=== PATIENT | male | born 1950 | race Caucasian/White ===

== ENCOUNTER 2016-09-07 07:45 | Observation (INO) | payer OTHER ==
[2016-09-07] MEDS ORDERED: diphenhydrAMINE 25 MG CAP PO ONE (07:52)
[2016-09-07] MEDS ORDERED: BACITRACIN IRRIGATION/NS 50,000 UNITS/1,000 ML BTL IRR ONE (07:52)
[2016-09-07] MEDS ORDERED: ceFAZolin 2 GM/DEXTROSE 100 ML IV ONE (07:52)
[2016-09-07] MEDS ORDERED: DIAZEPAM 5 MG TAB PO ONE (07:52)
[2016-09-07] MEDS ORDERED: NS 1,000 ML IV ONE (07:52)
--- NOTE | 2016-09-07 08:08 | CPEKG ---
Heart Rate: 65 RR Interval: 923 P-R Interval: 196 QRSD Interval: 110 QT Interval: 460 QTC Interval: 479 QRS [place]: -1 T Wave [place]: 175 EKG Severity - ABNORMAL ECG - EKG Impression: ATRIAL-PACED RHYTHM EKG Impression: LVH WITH IVCD AND SECONDARY REPOL ABNRM EKG Impression: PROBABLE INFERIOR INFARCT, AGE INDETERMINATE EKG Impression: PACING IS NEW IN COMPARISON TO PRIOR Electronically Signed By: Louis Gonzalez 07-Sep-2016 12:51:20
[2016-09-07 08:18] LABS: % IMMATURE GRANULYOCYTES 0.2 % (0.0-1.1); ABSOLUTE IMMATURE GRANULOCYTES 0.01 10^3/uL (0.00-0.10); ADD DIFF? NO; ADD MORPH? NO; ADD SCAN? NO; ATYPICAL LYMPHOCYTE FLAG 10 (0-99); FRAGMENT RBC FLAG 0 (0-99); HEMOGLOBIN 15.6 g/dL (13.7-17.5); LEFT SHIFT FLG 0 (0-99); LIPEMIA HEMOLYSIS FLAG 90 (0-99); MEAN CELL HEMOGLOBIN CONCENTR. 33.9 g/dL (32.4-36.7); MEAN CELL VOLUME 91.3 fL (81.5-99.8); MEAN PLATELET VOLUME 10.4 fL (8.7-11.7); PLATELET CLUMPS FLAG 0 (0-99); PLATELET COUNT 180 10^3/uL (150-400); RED BLOOD CELL COUNT 5.04 10^6/uL (4.40-6.38); RED CELL DISTRIBUTION WIDTH 13.2 % (11.5-15.2)
[2016-09-07] MEDS ORDERED: fentaNYL 100 MCG/2 ML INJ ONE ×2 (08:24→09:56)
[2016-09-07] MEDS ORDERED: LIDOCAINE 1% 300 MG/30 ML SDV ONE (08:24)
[2016-09-07] MEDS ORDERED: MIDAZOLAM 2 MG/2 ML VIAL ONE ×3 (08:24→11:18)
[2016-09-07] MEDS ORDERED: LIDO/EPI 1% **for epidural** 30 ML SDV ONE (08:25)
[2016-09-07] MEDS ORDERED: BUPIVACAINE 0.5% 30 ML SDV ONE (08:25)
[2016-09-07 08:32] LABS: INR 1.01 (0.83-1.16); PROTIME(PATIENT) 13.2 SEC (12.0-15.0)
[2016-09-07 08:33] LABS: ANION GAP 12 mEq/L (8-16); CALCIUM 9.3 mg/dL (8.5-10.4); CARBON DIOXIDE 25 mEq/l (22-31); CHLORIDE 108 mEq/L (97-110); CREATININE 1.3 mg/dL (0.7-1.3); GLOMERULAR FILTRATION RATE 55; GLUCOSE 81 mg/dL (70-100); POTASSIUM 4.2 mEq/L (3.5-5.2); SODIUM 145 mEq/L (134-144)
[2016-09-07] MEDS ORDERED: ASCORBIC ACID 500 MG TAB PO ONE (09:45)
[2016-09-07] MEDS ORDERED: ETOMIDATE 40 MG/20 ML INJ ONE (10:04)
[2016-09-07] MEDS ORDERED: IOPAMIDOL (ISOVUE-370) 150 ML BTL IV ONE (10:31)
[2016-09-07] MEDS ORDERED: ONDANSETRON 4 MG/2 ML VIAL IVP PRN (12:12)
[2016-09-07] MEDS ORDERED: ONDANSETRON DISINTEGRATING 4 MG TAB PO PRN (12:12)
--- NOTE | 2016-09-07 12:12 | EPPROC ---
Electrophysiology Procedure Note: PROCEDURE: 1. Dual-chamber AICD Generator pacemaker replacement for indication of MADIT II criteria, ischemic cardiomyopathy and non-sustained ventricular tachycardia 2. Chronic right atrial lead abandoned and capped. 3. Implantation of new right atrial lead for indication of high atrial lead threshold and visible insulation fracture DATE OF PROCEDURE: 09/07/2016 EXPLANTED DEVICE: Biotronik [id number] Lumax 540 DR-T Serial #[id number]. IMPLANTED DEVICE: Itrevia 7 DR-T DF-1 [id number] Serial #[id number] LEADS: The chronic right atrial lead is a [employer] 1882TC-46, Serial # [id number] and was capped. The chronic right ventricular lead is a Biotronik Linox S 65 Serial #[id number]. The newly implanted right atrial lead is a Biotronik Solia S 45 Serial #[id number] COMPLICATIONS: None CHIEF ENGINEER DRILLING AND RECOVERY: Remigio Geiger MD INDICATION AND APPROPRIATE USE CRITERIA: The device is being replaced for ELIZ alerts. PROCEDURE IN DETAIL: After informed consent was obtained and n.p.o. status was confirmed, the region of the left subclavicular fossa was cleaned, prepped and draped in a sterile fashion. Approximately 20 mL of 1% lidocaine was utilized for local anesthesia. The skin was sharply incised with a #10 blade. Electrocautery and local pressure were used for hemostasis. Sharp and blunt dissection was used to access the pacemaker pocket overlying the pectoralis major fascia. The pocket was thoroughly flushed and checked for bleeding. Hemostasis was established and the old device was removed from the pocket. The atrial and ventricular lead set screws were loosened. The chronic atrial lead was known to have an insulation fracture in the wall of the lead with dried blood in the fracture line. The atrial lead threshold was also high and would probably have decreased the battery life of the new device by at least 2 years by our calculations. The patient was then placed in Trendelenburg position and 18 gauge cook needle was used to gain access to the left subclavian vein. A peal away sheath was placed in the vein and used to place a new atrial lead. The atrial lead was carefully placed with the tip in the right atrial appendage and the set screw was deployed. The atrial lead threshold was 0.8 V at 0.4 milliseconds. P wave amplitude was measured at 3.1. The lead impedance was 507 Ohms. The lead was sutured into place with Ethibond. The atrial lead serial number was checked and placed in the upper pole lead housing of the new pulse generator and set screw firmly applied. The procedure was repeated for the RV lead. Ventricular lead threshold was tested and found to be 0.7 V at 0.4 ms width. R-wave amplitude was measured at 27.8 mV. Lead impedance was 507 Ohms. The device was placed in the pocket and sutured into place with Ethibond. The skin was closed with a 3-layered 3-0 Vicryl, 2-0 Vicryl and 4-0 Monocryl repair with excellent wound edge opposition and hemostasis documented. The patient returned to the post cath recovery unit in good and stable condition where a stat postoperative EKG and chest X-Ray will be obtained. FINAL IMPRESSION: Successful elective pulse generator/AICD generator replacement and atrial lead implantation without immediate complication.
[2016-09-07] MEDS ORDERED: NS 1,000 ML IV SCH (12:15)
--- NOTE | 2016-09-07 12:32 | CPEKG ---
Heart Rate: 63 RR Interval: 952 P-R Interval: 172 QRSD Interval: 110 QT Interval: 472 QTC Interval: 484 P [place]: 36 QRS [place]: -9 T Wave [place]: 186 EKG Severity - ABNORMAL ECG - EKG Impression: ATRIAL-PACED COMPLEXES EKG Impression: LEFT ATRIAL ABNORMALITY EKG Impression: NONSPECIFIC INTRAVENTRICULAR CONDUCTION DELAY EKG Impression: LVH WITH SECONDARY REPOLARIZATION ABNORMALITY EKG Impression: INFERIOR INFARCT, AGE INDETERMINATE Electronically Signed By: Louis Gonzalez 07-Sep-2016 12:51:34
[2016-09-07] MEDS: ACETAMINOPHEN 325 MG TAB PO PRN (18:08)
[2016-09-07] MEDS: CARVEDILOL CR 40 MG CAP PO SCH ×2 (20:48→20:51)
[2016-09-07] MEDS ORDERED: ROSUVASTATIN CALCIUM 20 MG TAB PO SCH (21:00)
[2016-09-08] MEDS: ACETAMINOPHEN 325 MG TAB PO PRN (04:11)
[2016-09-08 04:20] VITALS: RESP 17; O2SAT 97
[2016-09-08 05:04] LABS: % IMMATURE GRANULYOCYTES 0.2 % (0.0-1.1); ABSOLUTE IMMATURE GRANULOCYTES 0.01 10^3/uL (0.00-0.10); ADD DIFF? NO; ADD MORPH? NO; ADD SCAN? NO; ATYPICAL LYMPHOCYTE FLAG 0 (0-99); FRAGMENT RBC FLAG 0 (0-99); HEMATOCRIT 44.1 % (40.0-51.0); HEMOGLOBIN 14.7 g/dL (13.7-17.5); LEFT SHIFT FLG 0 (0-99); LIPEMIA HEMOLYSIS FLAG 80 (0-99); MEAN CELL HEMOGLOBIN 30.9 pg (27.9-34.1); MEAN CELL HEMOGLOBIN CONCENTR. 33.3 g/dL (32.4-36.7); MEAN CELL VOLUME 92.6 fL (81.5-99.8); MEAN PLATELET VOLUME 11.3 fL (8.7-11.7); PLATELET CLUMPS FLAG 0 (0-99); PLATELET COUNT 167 10^3/uL (150-400); RED BLOOD CELL COUNT 4.76 10^6/uL (4.40-6.38); RED CELL DISTRIBUTION WIDTH 13.4 % (11.5-15.2)
[2016-09-08 05:22] LABS: ANION GAP 10 mEq/L (8-16); CALCIUM 8.8 mg/dL (8.5-10.4); CARBON DIOXIDE 24 mEq/l (22-31); CHLORIDE 107 mEq/L (97-110); CREATININE 1.4 mg/dL (0.7-1.3); GLOMERULAR FILTRATION RATE 51; GLUCOSE 74 mg/dL (70-100); POTASSIUM 4.7 mEq/L (3.5-5.2); SODIUM 141 mEq/L (134-144)
[2016-09-08 08:17] VITALS: PULSE 68; TEMP 98
[2016-09-08] MEDS ORDERED: FLUoxetine 20 MG CAP PO SCH (09:00)
[2016-09-08] MEDS ORDERED: Herbals/Supplements -Info Only PO SCH (09:00)
[2016-09-08] MEDS ORDERED: ASPIRIN 81 MG CHEWABLE TAB PO SCH (09:00)
[2016-09-08] MEDS ORDERED: RAMIPRIL 5 MG CAP PO SCH (09:00)
[2016-09-08] MEDS ORDERED: OMEGA-3 FATTY ACIDS 1,000 MG CAP PO SCH (09:00)
--- NOTE | 2016-09-08 09:19 | CPEKG ---
Heart Rate: 70 RR Interval: 857 P-R Interval: 203 QRSD Interval: 110 QT Interval: 448 QTC Interval: 484 QRS [place]: 4 T Wave [place]: 197 EKG Severity - ABNORMAL ECG - EKG Impression: ATRIAL-PACED RHYTHM EKG Impression: NONSPECIFIC INTRAVENTRICULAR CONDUCTION DELAY EKG Impression: INFERIOR INFARCT, AGE INDETERMINATE Electronically Signed By: Louis Gonzalez 08-Sep-2016 14:19:08
[2016-09-08] MEDS ORDERED: CARVEDILOL CR 40 MG CAP PO SCH (10:45)
[2016-09-08 11:05] VITALS: BP 145/98
--- NOTE | 2016-09-08 22:58 | GDS ---
[f rep st] DISCHARGE SUMMARY DISCHARGE DIAGNOSES: 1. Ischemic cardiomyopathy with an EF of 20% with recent EILZ on ICD status post generator change. 2. Item implantation of new right atrial lead for high atrial lead threshold and visible insulation fracture on previous lead. 3. History of coronary artery disease. 4. History of dyslipidemia. 5. Hypertension. 6. Paroxysmal atrial fibrillation. PROCEDURES: 1. ICD generator pacemaker replacement based on made to criteria for ischemic cardiopathy. 2. Chronic right atrial lead abandonment and capping. 3. Implantation of a new right atrial lead for high atrial threshold as well as well as visible ins ulation fracture. 4. Serial chest x-rays. BRIEF HISTORY: Please see dictated H and P by Dr. Geiger for complete details. In brief, Mr. Cj Fuller is a 66-year-old male with known coronary artery disease, ischemic cardiomyopathy, EF of 20% with NYHA functional class 2 symptoms, hypertension, dyslipidemia, PAF, who was found to be at ELIZ o n pacer interrogation. He proceeded to generator change yesterday. At the time of his generator ch sarah, he was found to have increased impedances on his atrial lead as well as visible lead fractures , so he therefore required a lead revision of his atrial lead. RESULTS PENDING: None. DIET: Per previous. ACTIVITY: Arm precautions were reviewed. DISCHARGE MEDICATIONS: Please see med reconciliation. He is being discharged on his carvedilol, __ , ramipril, omega-3 fatty acids, fluoxetine. He is advised to take Tylenol p.r.n. pacer sit e pain. His aspirin is being restarted tomorrow as he has had issues with hematoma with his ICD in the past. /[id number]/MODL
== END 2016-09-08 11:09 | disposition home or self-care (01) ==
LOC: FCATH 07:45 → F2W 12:12
PROVIDERS: ADMIT Internal Medicine Cardiovascular Disease; ATTEND Internal Medicine Cardiovascular Disease
PROC: 02PA0MZ Removal of Cardiac Lead from Heart, Open Approach (ICD-10-PCS; principal; 2016-09-07)
PROC: 02HL3KZ Insertion of Defibrillator Lead into Left Ventricle, Percutaneous Approach (ICD-10-PCS; principal; 2016-09-07)
DX: Z45.018 Encounter for adjustment and management of other part of cardiac pacemaker (principal); I25.5 Ischemic cardiomyopathy; I25.10 Atherosclerotic heart disease of native coronary artery without angina pectoris; T82.198A Other mechanical complication of other cardiac electronic device, initial encounter; I47.2 Ventricular tachycardia; E78.5 Hyperlipidemia, unspecified; I10 Essential (primary) hypertension; I48.0 Paroxysmal atrial fibrillation; Z79.01 Long term (current) use of anticoagulants
CPT/HCPCS: 33216; 33235; 71010; 71020; 93005; A4649; C1769; G0378; C1721; C1898; J0690; J2250; J3010; Q9967

== ENCOUNTER 2016-11-16 22:56 | Emergency (ER) | payer OTHER ==
[2016-11-16 23:07] VITALS: RESP 18; TEMP 98.1
[2016-11-16] MEDS ORDERED: diphenhydrAMINE 25 MG CAP PO ONE (23:40)
[2016-11-16] MEDS ORDERED: predniSONE 20 MG TAB PO ONE (23:56)
[2016-11-16] MEDS ORDERED: FAMOTIDINE 20 MG TAB PO ONE (23:56)
--- NOTE | 2016-11-17 00:51 | EDPHY ---
H & P Stated Complaint: UPPER LIP SWELLING AFTER HOT SOUP WITH PEPPERS IN IT Time Seen by Provider: 11/16/16 23:29 HPI/ROS: HPI The patient presents with upper lip swelling for the last 3 hours. He earlier this afternoon was cutting a jalapeno and then brushed his upper lip. He had a burning sensation in his upper lip that lasted for about 45 minutes, then resolved on its own. After this he had the gradual onset of swelling of his upper lip which was progressive, severe and constant, not associated with any pain. He denies any difficulty swallowing, drooling, enlargement of his tongue , rash, vomiting, dizziness. He is on ramipril for several years. Yesterday he took a dose of Aleve for back pain he was having. Three days ago, he saw his end matcher and had new medications added to his usual medications- allopurinol on a diuretic of some sort. REVIEW OF SYSTEMS Constitutional: No fever, no chills. Eyes: No discharge. ENT: No sore throat. Cardiovascular: No chest pain, no palpitations. Respiratory: No cough, no shortness of breath. Gastrointestinal: No abdominal pain, no vomiting. Genitourinary: No hematuria. Musculoskeletal: No back pain. Skin: No rashes. Neurological: No headache. PMHx: Hypertension, CAD Soc Hx: Housed PHYSICAL General Appearance: Alert, no distress Eyes: Pupils equal and round no pallor or injection ENT, Mouth: Entirety of upper lip is markedly edematous, posterior pharynx and tongue are unremarkable, there is no stridor, Mucous membranes moist Respiratory: There are no retractions, lungs are clear to auscultation Cardiovascular: Regular rate and rhythm Neurological: A&O, moves all extremities Skin: Warm and dry, no rashes Musculoskeletal: Neck is supple non tender Extremities: symmetrical, full range of motion Psychiatric: Patient is oriented X 3, there is no agitation Source: Patient Exam Limitations: No limitations - Personal History Current Tetanus/Diphtheria Vaccine: Yes Current Tetanus Diphtheria and Acellular Pertussis (TDAP): Yes - Medical/Surgical History Hx Asthma: No Hx Chronic Respiratory Disease: No Hx Diabetes: No Hx Cardiac Disease: Yes Hx Renal Disease: No Hx Cirrhosis: No Hx Alcoholism: No Hx HIV/AIDS: No Hx Splenectomy or Spleen Trauma: No Other PMH: [place], cabg '05, ICM, [place], afib, HTN, CAD, "easy bleed', gen change with lead revision 2017, aicd - Social History Smoking Status: Never smoked Constitutional: Initial Vital Signs Temperature (C) 36.7 C 11/16/16 22:59 Heart Rate 80 11/16/16 22:59 Respiratory Rate 18 11/16/16 22:59 Blood Pressure 150/105 H 11/16/16 22:59 O2 Sat (%) 95 11/16/16 22:59 O2 Delivery Mode Room Air Allergies/Adverse Reactions: No Known Allergies Allergy (Unverified 11/16/16 23:02) Home Medications: Medication Instructions Recorded Aspirin [Aspirin 81mg (*)] 81 mg PO DAILY 09/07/16 Carvedilol Phosphate [Coreg Cr] 40 mg PO HS 09/07/16 FLUoxetine [Prozac 20 MG (*)] 20 mg PO DAILY 09/07/16 Herbals/Supplements -Info Only 1 ea PO DAILY 09/07/16 [place]-3 Fatty Acids [Fish Oil 1000 1,000 mg PO DAILY 09/07/16 mg (*)] Ramipril [Altace] 10 mg PO DAILY 09/07/16 Rosuvastatin Calcium [Crestor 20mg 20 mg PO HS 09/07/16 (*)] Acetaminophen [Tylenol 325mg (*)] 650 mg PO Q4HRS PRN #0 tab 09/08/16 Allopurinol [Zyloprim] 300 mg PO DAILY 11/16/16 Amoxicillin 500 mg PO TID 11/16/16 Spironolactone 25 mg PO 11/16/16 predniSONE 60 mg PO DAILY #15 tab 11/17/16 Medical Decision Making Differential Diagnosis: This is a 66-year-old man with angioedema of his upper lip for the last 3 hours. He does not have any other airway involvement or any other signs of anaphylaxis such as urticaria, vomiting, hypotension. He has been on an DANY- inhibitor for several years. He took a dose of Aleve yesterday. He also has been started on 2 new medications, allopurinol and a diuretic by his primary care doctor 3 days ago. It is unclear exactly what is causing this reaction, however I believe the DANY-inhibitor is most likely. I have advised him to stop this medication. In the emergency department, the patient was monitored for several hours with no progression of symptoms. He was treated with prednisone, H1 and H2 blockers. He felt well enough to go home. Repeat examination showed no tongue involvement. He will be discharged from the emergency room with referral to guest services assistant in primary care doctor for blood pressure medication modification. - Data Points Medications Given: Discontinued Medications Diphenhydramine HCl (Benadryl) 50 mg PO EDNOW ONE Stop: 11/16/16 23:41 Last Admin: 11/16/16 23:42 Dose: 50 mg Famotidine (Pepcid) 20 mg PO EDNOW ONE Stop: 11/16/16 23:57 Last Admin: 11/17/16 00:06 Dose: 20 mg Prednisone (Prednisone) 60 mg PO EDNOW ONE Stop: 11/16/16 23:57 Last Admin: 11/17/16 00:06 Dose: 60 mg Departure - Departure Disposition: Home, Routine, Self-Care Clinical Impression: Angioedema Qualifiers: Encounter type: initial encounter Qualified Code(s): T78.3XXA - Angioneurotic edema, initial encounter Condition: Good Instructions: Angioedema (ED) Additional Instructions: Please set an alarm and wake up in 2 hours to see if there has been any ongoing swelling, if there is, you should return to the emergency room immediately. Please return to the emergency room if your worse in any way. Otherwise you should follow up with your primary care physician to determine a better blood pressure medication regimen for you. I have also referred you to an guest services assistant. I have given you a prescription for prednisone. You can also take Benadryl 25 mg every 6 hours and Pepcid 20 mg twice a day until this improves. Referrals: Louis Orona PA [Primary Care Provider] - As per Instructions An Bland[place] [place] - As per Instructions Prescriptions: predniSONE 60 mg PO DAILY #15 tab
[2016-11-17 01:24] VITALS: BP 147/99; PULSE 78; O2SAT 94
== END 2016-11-17 01:24 | disposition home or self-care (01) ==
DX: T78.3XXA Angioneurotic edema, initial encounter (principal); I10 Essential (primary) hypertension; I25.810 Atherosclerosis of coronary artery bypass graft(s) without angina pectoris; Z79.82 Long term (current) use of aspirin

== ENCOUNTER 2018-07-01 12:20 | Observation (INO) | payer OTHER ==
--- NOTE | 2018-07-01 12:44 | EDPHY ---
H & P Stated Complaint: Neck paresthesia and pain Time Seen by Provider: 07/01/18 12:28 HPI/ROS: CHIEF COMPLAINT: Left-sided neck pain and paresthesia HISTORY OF PRESENT ILLNESS: The patient presents to the ED with several days of left-sided anterior neck pain and paresthesias in the same area. The patient does have a history of coronary artery disease. He is status post CABG 2003. The patient has had fairly regular follow-up with Dr. Geiger from Cardiology. The patient does have a pacemaker. The patient reports that he is notice some pain and numbness on the left anterior portion of his neck. It is intermittent in nature. It is not precipitated by exertion. The patient denies any pleuritic chest pain. He denies asymmetric calf pain or swelling. He denies additional acute complaints. He was concerned that the etiology of the pain was related to his pacemaker/AICD. He did contact the arrhythmia unit at [facility] who reports that his device is working normally. REVIEW OF SYSTEMS: A comprehensive 10 point review of systems is otherwise negative aside from elements mentioned in the history of present illness. Source: Patient Exam Limitations: No limitations - Medical/Surgical History Hx Asthma: No Hx Chronic Respiratory Disease: No Hx Diabetes: No Hx Cardiac Disease: Yes Hx Renal Disease: No Hx Cirrhosis: No Hx Alcoholism: No Hx HIV/AIDS: No Hx Splenectomy or Spleen Trauma: No Other PMH: [place], cabg '05, ICM, [place], afib, HTN, CAD, "easy bleed', gen change with lead revision 2017, aicd - Social History Smoking Status: Never smoked - Physical Exam Exam: General Appearance: Alert, no distress Eyes: Pupils equal and round no pallor or injection ENT, Mouth: Mucous membranes moist Neck: No carotid bruit, mild tenderness to palpation along the left internal carotid artery Respiratory: There are no retractions, lungs are clear to auscultation Cardiovascular: Regular rate and rhythm Gastrointestinal: Abdomen is soft and nontender, no masses, bowel sounds normal Neurological: 5/5 strength noted all 4 extremities, normal cranial nerves, patient does report decreased sensation to light touch noted along the left anterior aspect of his neck Skin: Warm and dry, no rashes Musculoskeletal: Neck is supple nontender Extremities: symmetrical, full range of motion Psychiatric: Patient is oriented X 3, there is no agitation Constitutional: Initial Vital Signs Temperature (C) 36.6 C 07/01/18 12:29 Heart Rate 67 07/01/18 12:29 Respiratory Rate 16 07/01/18 12:29 Blood Pressure 142/103 H 07/01/18 12:29 O2 Sat (%) 95 07/01/18 12:29 O2 Delivery Mode Room Air Allergies/Adverse Reactions: No Known Allergies Allergy (Unverified 07/01/18 12:29) Home Medications: Medication Instructions Recorded Aspirin [Aspirin 81mg (*)] 81 mg PO DAILY 09/07/16 Carvedilol Phosphate [Coreg Cr] 40 mg PO DAILY 09/07/16 Herbals/Supplements -Info Only 1 ea PO DAILY 09/07/16 [place]-3 Fatty Acids [Fish Oil 1000 1,000 mg PO DAILY 09/07/16 mg (*)] Rosuvastatin Calcium [Crestor 20mg 20 mg PO HS 09/07/16 (*)] FLUoxetine HCL [Fluoxetine HCl] 40 mg PO DAILY 07/01/18 Ramipril [Altace] 10 mg PO DAILY 07/01/18 Spironolactone [Aldactone 25 MG 25 mg PO DAILY 07/01/18 (*)] Medical Decision Making - Diagnostics EKG Interpretation: EKG: Complete interpretation has been separately recorded in the [email or web address] archive. Summary impression: Sinus rhythm, left bundle branch block, unchanged from prior EKG ED Course/Re-evaluation: Patient presents to the ED for evaluation of some paresthesias involving his upper chest and neck as well as some discomfort over his left carotid artery. I appreciated no obvious bruit on exam. The patient is neurologically intact. His EKG demonstrates a chronic left bundle with unchanged T-waves. The patient did undergo CT angiogram of the chest and neck which demonstrated no evidence of a dissection or thrombosis. The patient's troponin was normal. At this point time the etiology of his symptoms are somewhat uncertain. I did consult with his regular building performance specialist Dr. Geiger who will come evaluate the patient in the emergency department. Dr. Geiger has elected to admit the patient for observation this evening. Differential Diagnosis: Differential diagnosis considered includes acute coronary syndrome, carotid dissection, aortic dissection, carotidynia - Data Points Laboratory Results: Laboratory Results 07/01/18 12:30 07/01/18 12:30 Medications Given: Rosuvastatin Calcium (Crestor) 20 mg PO HS TANNER Stop: 12/28/18 20:59 Last Admin: 07/01/18 20:56 Dose: 20 mg Discontinued Medications Carvedilol (Coreg Cr) 40 mg PO HS TANNER Stop: 12/28/18 20:59 Last Admin: 07/01/18 21:36 Dose: Not Given Sodium Chloride (Ns) 1,000 mls @ 100 mls/hr IV CONT TANNER Stop: 07/02/18 02:29 Last Admin: 07/01/18 17:43 Dose: 1,000 mls Point of Care Test Results: Chemistry 07/01/18 07/01/18 07/01/18 12:51 12:43 12:28 POC Sodium 141 mEq/L mEq/L (135-145) POC Potassium 4.3 mEq/L mEq/L (3.3-5.0) POC Chloride 102 mEq/L mEq/L (97-110) POC Total CO2 28 mEq/L mEq/L (22-31) POC BUN 20 mg/dL mg/dL (7-23) POC Creatinine 1.6 mg/dL H mg/dL (0.7-1.3) POC Glucose 90 mg/dL mg/dL (70-100) POC Troponin I 0.00 ng/mL ng/mL TNP (0.00-0.08) ISTAT H&H 07/01/18 12:51 POC Hgb 15.0 gm/dL gm/dL (13.7-17.5) POC Hct 44 % % (40-51) Departure - Departure Disposition: [facility] Clinical Impression: Neck pain Condition: Good
[2018-07-01 12:46] LABS: PLATELET COUNT 209 10^3/uL (150-400)
--- NOTE | 2018-07-01 12:49 | CPEKG ---
Test Reason : OPEN Blood Pressure : / mmHG Vent. Rate : 071 BPM Atrial Rate : 227 BPM P-R Int : 215 ms QRS Dur : 130 ms QT Int : 435 ms P-R-T Axes : -12 -09 230 degrees QTc Int : 473 ms Sinus rhythm Borderline prolonged OK interval Left bundle branch block Confirmed by Parveen Carrasco ([id number]) on 07/01/2018 12:48:54 PM Referred By: PHYSICIAN ED Confirmed By:Parveen Carrasco
[2018-07-01] MEDS ORDERED: IOPAMIDOL (ISOVUE 370) 100 ML BTL IV ONE (13:11)
[2018-07-01] MEDS ORDERED: NITROGLYCERIN 0.4 MG BTL SL PRN (16:24)
[2018-07-01] MEDS ORDERED: ONDANSETRON DISINTEGRATING 4 MG TAB PO PRN (16:24)
[2018-07-01] MEDS ORDERED: ONDANSETRON 4 MG/2 ML VIAL IVP PRN (16:24)
[2018-07-01] MEDS ORDERED: TEMAZEPAM 15 MG CAP PO PRN (16:24)
[2018-07-01] MEDS ORDERED: NS 1,000 ML IV SCH (16:30)
[2018-07-01] MEDS: ROSUVASTATIN CALCIUM 20 MG TAB PO SCH (20:56)
[2018-07-01] MEDS ORDERED: CARVEDILOL CR 40 MG CAP PO SCH (21:00)
[2018-07-02 04:35] LABS: PLATELET COUNT 180 10^3/uL (150-400)
[2018-07-02 04:44] LABS: INR 1.04 (0.83-1.16); PROTIME(PATIENT) 13.2 SEC (12.0-15.0)
--- NOTE | 2018-07-02 05:08 | GHP ---
[f rep st] HISTORY AND PHYSICAL DATE OF ADMISSION: 07/01/2018 The patient is a 68-year-old man with a history of an ischemic cardiomyopathy, status post myocardial infarction remotely. He also required an AICD for a MADIT II indication. The patient also has paroxysmal atrial fibrillation and has refused to take full-dose anticoagulation even though he knows it would reduce his risk of having heart attack or stroke if he took a direct oral anticoagulation agent such as Eliquis 5 mg p.o. b.i.d. He has noticed pain and numbness in the left anterior portion of his neck that is intermittent in nature and also seems vibrational. It is not precipitated by exertion. The patient denies any pleuritic chest pain. He denies asymmetric calf pain or swelling. He has not had an arrhythmia. His device appears to be working normally per the [facility] arrhythmia unit as part of our EP department. Comprehensive 10-point review of systems is otherwise negative except for those mentioned in the HPI. He does not have a history of chronic respiratory disease , diabetes, or hypertension. He does not have a history of alcoholism or cirrhosis. He does have a history of an elevated creatinine. He did have a bypass surgery in . He has a known ischemic cardiomyopathy, a history of nonsustained VT, atrial fibrillation, hypertension, coronary disease, and he seems to have some bleeding issues and feels like he is "a bleeder," although a definitive diagnosis has not been made on that. PHYSICAL EXAMINATION: VITAL SIGNS: Blood pressure 125/82, pulse 65 and regular , respirations 16 and unlabored, oxygen saturation 94% on room air. NECK: Reveals no JVD or carotid bruit. HEART: Reveals normal S1 and S2, without S3, S4. I do not appreciate a rub or gallop sound. It does seem that there is a vibrational quality to the sensation when he has that, that I can feel through his skin, although it is not clearly emanating from the pacemaker. I do not believe his device is near end of life, but we will have that formally interrogated tomorrow. LUNGS: Clear to auscultation bilaterally without wheezes, rales,or rhonchi. ABDOMEN: Benign with positive bowel sounds. It is nondistended, nontender. EXTREMITIES: Warm, dry, and well perfused, without significant peripheral edema. His CT pulmonary angiogram did not reveal pulmonary thromboemboli, aortic aneurysm or dissection. There was mild cardiomegaly and prior coronary artery bypass. There was no acute pneumonia, pleural effusion, pneumothorax, or significant adenopathy. Neck CTA was performed and revealed mild atherosclerotic disease of bilateral carotid bulbs without flow-limiting stenosis, occlusion, or dissection. There was no vertebral dissection or flow- limiting disease on the CT angiogram of the neck as interpreted by Jt Mancilla. A head CT was also done without contrast, given the unilateral location of his symptoms, and there were microvascular ischemic changes without acute abnormality identified. They felt if there was clinical concern for stroke, then recommend MRI without contrast, which this patient cannot have because he has an old AICD, which is not MRI conditional or compatible. IMPRESSION/PLAN: The patient has evidence of microvascular disease and microemboli of the brain, which makes me concerned about the fact that he is not on a direct oral anticoagulation agent such as Eliquis 5 twice a day. Given these findings on CT, I think that would be consistent with a cerebrovascular accident. This would add 2 points to his CHADS-VASc score, which is already at least a 3 on the basis of his age, hypertension, and vascular disease. At a 5, I would be even more adamant about encouraging him to be on full-dose blood thinner in the form of Eliquis 5 mg twice a day. There is data on Eliquis 2.5 twice a day in the prevention of chronic thromboembolic disease and recent studies with lower-dose Xarelto in patients with coronary disease being superior to aspirin in prevention of subsequent myocardial infarction or stroke. The patient's chest x-ray is stable. The electrocardiogram reveals sinus rhythm with left bundle branch block, which makes it difficult to interpret in regard to evaluation for resting ischemia. It is a somewhat atypical left bundle given a leftward axis, as well as with first-degree atrioventricular block and intermittent paced beats in the atrium. There is no evidence of ventricular pacing at present. The patient did have an echocardiogram at the [facility], [place], where he spends approximately 5 months of his year, and his ejection fraction was recently found to be 40%, which is overall improved from the lowest numbers which were in the 20s. I think the patient should be on full-dose anticoagulation because of his sensation of chest discomfort as well as the left-sided nature of the symptoms in his neck and shoulder. I would like to have the device interrogated to ensure that it is not at end of life. It does not have a vibrational alert. We will have it formally interrogated tomorrow. If there is not an identified reason for the discomfort in the left shoulder and neck, I think he should undergo heart cardiac catheterization to evaluate for new or flow-limiting obstruction of his coronary circulation. He understands the risks, benefits, and alternatives of this course of action, and is willing to proceed as planned. I do want to share with him the results of the head CT tomorrow after the cardiac catheterization and I do plan to recommend full-dose direct oral anticoagulation agent to be continued indefinitely, even if he requires a new stent. In that case, he would require Eliquis and Plavix as dual therapy, and the aspirin would be dropped after 30 days to try to avoid having him on so-called triple therapy. Copy requested to: Primary Care Physician /[id number]/MODL MTDD
[2018-07-02] MEDS ORDERED: ASPIRIN EC 325 MG TAB PO ONE ×2 (06:00→10:39)
[2018-07-02] MEDS ORDERED: diphenhydrAMINE 25 MG CAP PO ONE ×2 (06:00→10:16)
[2018-07-02] MEDS ORDERED: DIAZEPAM 5 MG TAB PO ONE (06:00)
[2018-07-02] MEDS ORDERED: FAMOTIDINE 20 MG TAB PO ONE (06:00)
[2018-07-02] MEDS ORDERED: Herbals/Supplements -Info Only PO SCH (09:00)
[2018-07-02] MEDS: CARVEDILOL CR 40 MG CAP PO SCH (10:03)
[2018-07-02] MEDS: FLUoxetine 20 MG CAP PO SCH (10:05)
[2018-07-02] MEDS: RAMIPRIL 5 MG CAP PO SCH (10:05)
[2018-07-02] MEDS: OMEGA-3 FATTY ACIDS 1,000 MG CAP PO SCH (10:06)
[2018-07-02] MEDS: SPIRONOLACTONE 25 MG TAB PO SCH (10:06)
[2018-07-02] MEDS ORDERED: FAMOTIDINE 20 MG TAB ONE (10:16)
[2018-07-02] MEDS ORDERED: DIAZEPAM 5 MG TAB ONE (10:17)
[2018-07-02] MEDS ORDERED: MIDAZOLAM 2 MG/2 ML VIAL ONE ×3 (10:18→12:40)
[2018-07-02] MEDS ORDERED: fentaNYL 100 MCG/2 ML INJ ONE ×2 (10:18→12:41)
[2018-07-02] MEDS ORDERED: LIDOCAINE 1% 300 MG/30 ML SDV ONE (10:18)
[2018-07-02] MEDS ORDERED: HEPARIN 10,000 UNIT/10 ML MDV (1,000 UNIT/ML) ONE (10:19)
[2018-07-02] MEDS ORDERED: IOPAMIDOL (ISOVUE-370) 150 ML BTL IV ONE ×2 (10:19→12:16)
[2018-07-02] MEDS ORDERED: VERAPAMIL 5 MG/2 ML VIAL ONE (10:19)
--- NOTE | 2018-07-02 10:32 | ASDISCHSUM ---
Discharge Information Plan Status:Home with No Needs Medically Cleared to Leave:07/02/2018 Discharge Date:07/02/2018 CM D/C Disposition:Home, Routine, Self-Care ADT D/C Disposition: Projected Discharge Date:07/02/2018 Transportation at D/C: Discharge Delay Reason: Follow-Up Date:07/02/2018 Discharge Slot: Final Diagnosis: Placement Information Patient Contact Information Contact Name:SALVATORE Relationship: Address:[address] [place] [address] City:[place] Alternate Phone: State/Zip Code:[place] [address] Email: Financial Information Financial Class:Medicare Primary Plan Desc:MEDICARE OUTPATIENT Primary Plan Number:[id number] Secondary Plan Desc:AKILAH FERNANDEZ O OPEN ACC LOCAL Secondary Plan Number:[id number] Assessment Information LACE LACE Length of stay for Answers: Less than 1 day current admission Acuity / Level of Answers: No Care: Did the patient have an inpatient admission? Comorbidities - select Answers: Coronary Artery Disease all that apply Previous myocardial infarction Other Notes: HTN # of Emergency department Answers: 1-2 visits in the last 6 months Score: 5 Date Signed: 07/02/2018 10:30 AM Electronically Signed By:Edith Terrell RN Intervention Information Intervention Type:*BEATRIZ-Signed Date of Service:07/02/2018 09:38 AM Patient Type:Observation Staff Member:Kristine Mathews Hours: Discipline: Severity: Comment:
--- NOTE | 2018-07-02 11:08 | PDPROPOC ---
Sedation Plan of Care Sedation Plan of Care: vital signs stable, mental status noted, patient educated of risks, benefits, alternatives, patient can tolerate sedation ASA Classification: ASA 3 Planned drugs: fentanyl, midazolam Mallampati Score: Class 2 Mallampati Reference Image: Patient passed 3-3-2 rule?: Yes
--- NOTE | 2018-07-02 11:09 | PDHPUP ---
History & Physical Update H&P update statement: This history and physical update is based on an assessment of the patient which was completed after admission or registration (within 24 hours), but prior to the surgery/procedure. H&P update: H&P reviewed & patient examined, no change in patient's condition since H&P completed
--- NOTE | 2018-07-02 11:33 | PDDXCAT ---
Diagnostic Cath Note - . Date: 07/02/18 Gang Vibrator Operator: Juanjo Indication: CCC Class III and IV angina on medical treatment - Procedure Access: right groin Procedure: left heart catheterization, coronary angiography, left ventriculogram , vein graft injection, HENSON injection - Materials Left Heart Cath size: 6F Left Heart Cath materials: JL4.0, JR4.0, pigtail - Findings-Left Heart Catheterization LM: The left main is 6mm in size and bifurcates into an LAD and Circumflex system. LAD: The left anterior descending is 4mm in size. The vessel gives rise to an important 2.5mm diagonal branch. The second diagonal branch is also large. The LAD there after is relatively small and has a "kink" in the mid course segment of the vessel, where there is an estimated 80% stenosis. The patient has built extensive left to left collateral which in essencse contect the distal portion of the second diagonal to the LAD proper. Both the the LAD and diagonal are then connected to the PDA. LCX: The circumflex proper is 2.5mm in size and is small bifurcting OM which is free of flow limiting obtruction. RCA: The [place] right coronary artery is totally occluded. There are bridging right to right collateral to the RV branch. There is an 80% stenosis in the retrograde limb of the [place] PDA with YOKASTA II flow. rSVG: The SVG to the diagonal is widely patent with 30% ostial stenosis. The SVG to the RCA is totally occluded. The SVG to the PDA has a 90% stenosis in the ostial segment of the vein graft and there is an 90% stenosis athe the distal PDA proximal to the anastamosis. There is YOKASTA II flow. HENSON: The HENSON to the LAD is atretic and is not developed since prior heart cath in 2007. There is poor blood flow to the anterior wall of the heart. EDP: 21mmHg LVEF: 25% Wall motion: On the LV gram there is decreased LV systolic function. The EF is decreased measuring 25%. 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 The visualized portion of the thoracic aortic valve reveals three sinuses of valsalva most consistent with a trileaflet valve. There is 2+ mitral regurgitation. There is no gradient on pullback across the aortic valve. There is no evidence of perez dissection or aneurysm formation of the thoracic aorta. The proximal thoracica aorta is upper limits of normal in size. - Findings-Right Heart Catheterization AO: 129/80/100 Complications: NONE Estimated blood loss: <50ml Closure method: Angioseal Assessment: The patient has severe [place] vessel coronary disease with total occlusion to the [place] RCA. There are bridging collaterals to the RV BRanch. After vein graft injection the SVG to the distal RCA is totally occluded. The SVG to the first diagonal is widely patent. The distal diagonal has left to left collaterals to the distal LAD and RCA. There is an 90% ostial stenosis of the SVG to the PDA with a 80% stenosis right after the ostial origin. Plan: Aspirin 81mg along with Plavix 75mg daily should be continued for at least 1 year following drug eluting stent implantation. No elective surgery for the first 3 months. The patient will stop the ASA after 1 month and Eliquis 5mg BID will be initiated because of the history of atrial fibrillation and evidence of microemboli on the Ct scan of the head. We would like to avoid having him on so called "triple therapy" for more than month post stent implantation. Plavix 75mg and Eliquis 5mg BID will be continued for one year post stent the Eliquis in full dose should be continued indefinitely. Decisions to change his anticoagulation regimen before 1 year should involve our office [facility] . Intervention: A 6 [place] IM guiding catheter was used for guide catheter support. A 0.014" 180 cm Intuition Wire was advanced across the lesion in question under direct fluoroscopic and angiographic guidance. A 3.5 x 20mm Emerge balloon was advanced over the lesion in the ostial segment of the SVG to the PDA. The balloon was inflated at a maximum inflation of 16atm for 15 seconds. The balloon was removed. A 4.0 x 16atm Synergy drug eluting stent was then deployed in the ostium and proximal segment of the SVG to the PDA. The stent delivery system was used to post dilated at a maximum pressure of 20atm for 10seconds. A 5.0 x 8mm [place] balloon was advanced across the Intuition wire into the stent at deployed at a maximum pressure of 14atm for 25seconds. There was 5% residual post stent implantation with improvement from YOKASTA II flow to YOKASTA III flow post stent implantation. A 6 [place] IM guiding catheter was used for guide catheter support. A 0.014" 180 cm Intuition Wire was advanced across the lesion in question under direct fluoroscopic and angiographic guidance. A 2.5 x 12mm Emerge balloon was advanced over the lesion in the distal [place] PDA. The balloon was deployed at a maximum pressure of 10atm for 10 seconds. The balloon was removed and replaced with a 2.5 x 16 Synergy drug eluting stent. The stent was unable to cross the lesion and removed. A 6F Guidezilla guide lining catheter was placed for additional support. The previous 2.5 x 12mm Emerge balloon was readvanced down the Intuition Wire. The balloon was deployed at a maximum pressure of 12atm for 25seconds and removed. A 5.0 x 8mm [place] balloon was advanced into the previously stented segment in the ostium of the SVG to the PDA. The balloon was deployed at a maximum pressure of 14atm for 30 seconds and removed. The 2.5 x 16 Synergy drug eluting stent was advanced across the lesion in the retrograde limb of the distal PDA and the stent delivery system was used to deploy the stent at a maximum pressure of 16atm for 10seconds. There was 0% residual post stent implantation with improvement from YOKASTA II flow to YOKASTA III flow post stent implantation. Patient Problems: Problems Problem Status Onset Neck pain Acute Ischemic cardiomyopathy Acute
[2018-07-02] MEDS ORDERED: BIVALIRUDIN 250 MG/5 ML VIAL IV ONE ×2 (11:48→12:44)
[2018-07-02] MEDS ORDERED: NITROGLYCERIN 1,500 MCG/15 ML VIAL MISC ONE (11:49)
[2018-07-02] MEDS ORDERED: CLOPIDOGREL BISULFATE 75 MG TAB ONE (13:09)
[2018-07-02] MEDS ORDERED: ATROPINE SULFATE 1 MG/10 ML SYR IVP PRN (13:13)
[2018-07-02] MEDS ORDERED: CLOPIDOGREL BISULFATE 75 MG TAB PO ONE (13:13)
[2018-07-02] MEDS ORDERED: NS 1,000 ML IV SCH (13:15)
--- NOTE | 2018-07-02 13:20 | CPEKG ---
Test Reason : OPEN Blood Pressure : / mmHG Vent. Rate : 066 BPM Atrial Rate : 066 BPM P-R Int : 188 ms QRS Dur : 110 ms QT Int : 449 ms P-R-T Axes : 029 -04 216 degrees QTc Int : 471 ms Sinus rhythm Multiple ventricular premature complexes Probable left atrial enlargement Inferior infarct, age indeterminate Confirmed by Michael Ford ([id number]) on 07/02/2018 1:20:03 PM Referred By: Remigio Geiger Confirmed By:Michael Ford
[2018-07-02] MEDS: ACETAMINOPHEN 325 MG TAB PO PRN ×2 (15:44→21:37)
[2018-07-02] MEDS: ROSUVASTATIN CALCIUM 20 MG TAB PO SCH (19:50)
[2018-07-03] MEDS: CARVEDILOL CR 40 MG CAP PO SCH (08:23)
[2018-07-03] MEDS: FLUoxetine 20 MG CAP PO SCH (08:24)
[2018-07-03] MEDS: RAMIPRIL 5 MG CAP PO SCH (08:24)
[2018-07-03] MEDS: ASPIRIN EC 325 MG TAB PO SCH ×2 (08:24→09:57)
[2018-07-03] MEDS: OMEGA-3 FATTY ACIDS 1,000 MG CAP PO SCH (08:24)
[2018-07-03] MEDS: SPIRONOLACTONE 25 MG TAB PO SCH (08:24)
[2018-07-03] MEDS ORDERED: CLOPIDOGREL BISULFATE 75 MG TAB PO SCH (09:00)
[2018-07-03 11:51] VITALS: BP 110/73
--- NOTE | 2018-07-03 16:09 | GDS ---
[f rep st] DISCHARGE SUMMARY DISCHARGE DIAGNOSES: 1. Coronary artery disease status post prior coronary artery bypass grafting. 2. Status post stenting of the single vein graft to the posterior descending artery. 3. Stenting to the [place] posterior descending artery just proximal to the anastamosis of the single vein graft to the posterior descending artery. 4. Ischemic cardiomyopathy with ejection fraction of 25%. 5. Paroxysmal atrial fibrillation with evidence of microvascular ischemic disease on CTA of the head. 6. Status post implantable cardioverter/defibrillator. HOSPITAL COURSE: For detailed H and P, please see prior dictation. Briefly, the patient is a 68-year-old male with a history of coronary artery disease status post CABG, ischemic cardiomyopathy with ejection fraction of 25%, nonsustained ventricular tachycardia, hypertension, and atrial fibrillation, who presented to the hospital with complaint of numbness in the left anterior portion of his neck that was intermittent with a vibrational sensation. He had a pulmonary CTA which was negative for pulmonary embolus. He had a CTA of the head and neck which showed microvascular ischemic changes. Because of his neck discomfort, ultimately, he was taken to the cardiac catheterization laboratory the following day by Dr. Remigio Geiger. For details of his catheterization report, please see prior dictation. Briefly, the left main was without significant disease. The left anterior descending artery had a kink with an 80 % stenosis in the mid segment. The left circumflex artery was free of flow- limiting disease. The right coronary artery was totally occluded with an 80% stenosis in the retrograde limb of the [place] PDA. The single vein graft to the diagonal was widely patent with a 30% ostial stenosis. The single vein graft to the right coronary artery was totally occluded. The single vein graft to the PDA had a 90% stenosis in the ostial segment of the vein graft, and there was a 90% stenosis of the distal PDA proximal to the anastomosis. Ultimately, the decision was made to stent the ostial single vein graft to the right coronary artery. He then proceeded with stenting of the [place] PDA which was proximal to the single vein graft to the PDA anastomosis. The following morning, the patient denied any chest discomfort. He was monitored on telemetry and remained in normal sinus rhythm. His ejection fraction was monitored at the time of his angiogram and measured at 25%. He did not note any improvement in the vibrational sensation in his neck. PHYSICAL EXAMINATION: GENERAL: Patient appears in no acute distress. VITALS: Blood pressure 110/73, heart rate 76, oxygen saturation 94% on room air, afebrile. CARDIAC: Regular rate and rhythm. EXTREMITIES: Right groin where access was obtained for the angiogram is clean, intact, without any evidence of infection or hematoma. LABORATORY DATA: Creatinine 1.5, triglycerides 120, LDL 67, HDL 29. Troponin negative. DISCHARGE MEDICATIONS: Plavix 75 mg daily, aspirin 81 mg daily, Eliquis 2.5 mg b.i.d., fish oil 1000 mg daily, Crestor 20 mg daily, Coreg CR 40 mg daily, herbal supplement daily, Altace 10 mg daily, spironolactone 25 mg daily, fluoxetine 40 mg daily. PLAN: The patient is currently stable and ready for discharge home. He has been given groin precautions. He has been scheduled to follow up with Dr. Remigio Geiger in 4 to 6 weeks. He had evidence of microvascular disease by CTA of the head. An MRI was recommended but unable to be performed secondary to the patient having an ICD which is not MRI compatible. Ultimately, he has a history of paroxysmal atrial fibrillation. The concern for embolic disease is high. He will begin 2.5 mg of Eliquis tomorrow. In 1 month, his aspirin will be discontinued and he can increase his Eliquis to 5 mg b.i.d. at that time. Greater than 30 minutes was spent coordinating the patient's care today. /[id number]/MODL MTDD
== END 2018-07-03 12:38 | disposition home or self-care (01) ==
LOC: F2W 17:00
PROVIDERS: ADMIT Internal Medicine Cardiovascular Disease; ATTEND Internal Medicine Cardiovascular Disease
PROC: B212YZZ Fluoroscopy of Single Coronary Artery Bypass Graft using Other Contrast (ICD-10-PCS; principal; 2018-07-01)
PROC: B216YZZ Fluoroscopy of Right and Left Heart using Other Contrast (ICD-10-PCS; principal; 2018-07-01)
PROC: 4A023N8 Measurement of Cardiac Sampling and Pressure, Bilateral, Percutaneous Approach (ICD-10-PCS; principal; 2018-07-01)
PROC: B213YZZ Fluoroscopy of Multiple Coronary Artery Bypass Grafts using Other Contrast (ICD-10-PCS; principal; 2018-07-01)
PROC: B211Y10 Fluoroscopy of Multiple Coronary Arteries using Other Contrast, Laser Intraoperative (ICD-10-PCS; principal; 2018-07-01)
PROC: 027134Z Dilation of Coronary Artery, Two Arteries with Drug-eluting Intraluminal Device, Percutaneous Approach (ICD-10-PCS; principal; 2018-07-01)
DX: I25.119 Atherosclerotic heart disease of native coronary artery with unspecified angina pectoris (principal); I25.719 Atherosclerosis of autologous vein coronary artery bypass graft(s) with unspecified angina pectoris; I25.5 Ischemic cardiomyopathy; Z95.810 Presence of automatic (implantable) cardiac defibrillator; Z95.1 Presence of aortocoronary bypass graft
CPT/HCPCS: 70450; 70498; 71045; 71275; 93005; 93459; 99285; C1725; C1760; C1769; C1874; C1887; C9604; G0378; J0583; J1644; J2250; J3010; Q9967; 82435-PO; 82565-PO; 82947-PO; 84132-PO; 84295-PO; 84484-ER; 84520-PO; 85014-ER